=== PATIENT | male | born 2000 | race Caucasian/White ===

== ENCOUNTER 2022-08-08 19:30 | Emergency (ER) | payer OTHER, SELFPAY ==
[2022-08-08] MEDS ORDERED: Acetaminophen 500 MG TAB ONE (19:51)
== END 2022-08-08 21:18 | disposition home or self-care (01) ==
LOC: BURERS 19:30
DX: S02.32XA Fracture of orbital floor, left side, initial encounter for closed fracture (principal); S00.03XA Contusion of scalp, initial encounter; S06.0X9A Concussion with loss of consciousness of unspecified duration, initial encounter; Z87.891 Personal history of nicotine dependence; Y04.0XXA Assault by unarmed brawl or fight, initial encounter
CPT/HCPCS: 70450; 70486